=== PATIENT | female | born 1950 | race American Indian/Alaskan Native ===

== ENCOUNTER 2017-11-11 08:36 | Day surgery (SDC) | payer MEDICARE ==
[~2017-11-11 08:36] MED LIST: ANCEF/STERILE WATER 2 GM/20 ML 2 GM/20 ML SYRINGE IV NR; HEPARIN 10,000 UNITS/10 ML ONE; NACL 0.9% 1000 ML 1,000 ML IV SCH; NACL 0.9% 500 ML 500 ML ONE; PAPAVERINE ONE; PROTAMINE SULFATE ONE
[2017-11-11 09:58] VITALS: BP 115/66
[2017-11-11 10:29] LABS: Basophils # (Auto) 0.1 K/mm3 (0.0-0.1); Basophils % (Auto) 0.8 % (0.0-1.8); Eosinophils # (Auto) 0.4 K/mm3 (0.0-0.4); Eosinophils % (Auto) 5.5 % (0.0-4.3); Hematocrit 31.4 % (30.3-42.9); Hemoglobin 10.4 gm/dl (10.1-14.3); Lymphocytes # (Auto) 1.8 K/mm3 (1.2-5.4); Lymphocytes % (Auto) 25.8 % (13.4-35.0); Mean Corpuscular HGB Conc 33 % (30-34); Mean Corpuscular Hemoglobin 30 pg (28-32); Mean Corpuscular Volume 91 fl (79-97); Monocytes # (Auto) 0.5 K/mm3 (0.0-0.8); Monocytes % (Auto) 6.5 % (0.0-7.3); Platelet Count 194 K/mm3 (140-440); Red Blood Count 3.43 M/mm3 (3.65-5.03); Red Cell Distribution Width 17.5 % (13.2-15.2)
--- NOTE | 2017-11-11 10:45 | Anesthesia Day of Surgery ---
Anesthesia Day of Surgery - Day of Surgery Patient Examined: Yes Patient H&P Reviewed: Yes Patient is NPO: Yes
--- NOTE | 2017-11-11 10:46 | Anesthesia Consultation ---
Anesthesia Consult and Med Hx Date of service: 11/11/17 - Airway Anesthetic Teeth Evaluation: Good ROM Head & Neck: Adequate Mental/Hyoid Distance: Adequate Mallampati Class: Class II Intubation Access Assessment: Probably Good - Pulmonary Exam CTA: Yes - Cardiac Exam Cardiac Exam: RRR - Pre-Operative Health Status ASA Pre-Surgery Classification: ASA4 Proposed Anesthetic Plan: General (Ga with LMA ok, ESRD dialysis this past Saturday, Denies CAD) - Pulmonary Hx Smoking: Yes (3-5 CIG/DAY, STARTED BACK IN 2012) - Cardiovascular System Hx Hypertension: Yes (OVER 10 YEARS) Hx Heart Murmur: No - Central Nervous System Hx Psychiatric Problems: Yes - Endocrine Hx Renal Disease: Yes Hx End Stage Renal Disease: Yes - Other Systems Hx Alcohol Use: No Hx Substance Use: No Hx Cancer: No
[2017-11-11 10:50] LABS: Calcium 9.7 mg/dL (8.4-10.2)
[2017-11-11] MEDS ORDERED: VERSED IV NR (11:00)
[2017-11-11] MEDS ORDERED: NACL 0.9% 1000 ML 1,000 ML IV SCH ×2 (11:00)
[2017-11-11] MEDS ORDERED: DILAUDID IV PRN (11:30)
[2017-11-11] MEDS ORDERED: ZOFRAN IV PRN (11:30)
== END 2017-11-11 08:37 | disposition home or self-care (01) ==
LOC: OR 08:36
PROVIDERS: ATTEND Surgery Vascular Surgery
DX: I12.0 Hypertensive chronic kidney disease with stage 5 chronic kidney disease or end stage renal disease (principal); N18.6 End stage renal disease; F17.210 Nicotine dependence, cigarettes, uncomplicated; Z80.8 Family history of malignant neoplasm of other organs or systems; Z91.041 Radiographic dye allergy status; Z53.8 Procedure and treatment not carried out for other reasons
CPT/HCPCS: 36415; 80048; 84132; 85025; J7030; J7040; J0690; J1644; J2440; J2720